=== PATIENT | male | born 1970 | race Caucasian/White ===

== ENCOUNTER 2018-04-01 22:03 | Emergency (ER) | payer OTHER ==
[~2018-04-01] VITALS: Ht 172.7 cm; Wt 86.4 kg
[2018-04-01 22:11] VITALS: Ht 172.7 cm; Wt 86.4 kg
[2018-04-01] MEDS ORDERED: ATARAX 25 MG TA25 MG (22:12)
[2018-04-01] MEDS ORDERED: PEPCID AC20 MG (22:12)
[2018-04-01] MEDS ORDERED: ZOCOR5 MG (22:12)
[2018-04-01] MEDS ORDERED: HYDROCHLOROTH12.5 M1 (22:13)
[2018-04-01] MEDS ORDERED: LISINOPRIL10 MG (22:13)
[2018-04-02 00:01] VITALS: BP 128/72
== END 2018-04-02 00:01 | disposition home or self-care (01) ==
LOC: D.ER 22:03
DX: S05.02XA Injury of conjunctiva and corneal abrasion without foreign body, left eye, initial encounter (principal); X58.XXXA Exposure to other specified factors, initial encounter; Y93.89 Activity, other specified; Y92.89 Other specified places as the place of occurrence of the external cause; H54.7 Unspecified visual loss; I10 Essential (primary) hypertension; K21.9 Gastro-esophageal reflux disease without esophagitis